=== PATIENT | female | born 1945 | race Caucasian/White ===

== ENCOUNTER → 2023-09-03 07:25 | Outpatient (REF) | payer OTHER, SELFPAY | LOC: HWRAD 07:25 | PROVIDERS: ATTENDING PHYSICIAN Internal Medicine | DX: M85.80 Other specified disorders of bone density and structure, unspecified site (principal); Z12.31 Encounter for screening mammogram for malignant neoplasm of breast | CPT/HCPCS: 77063; 77067; 77080 ==

== ENCOUNTER → 2023-12-30 10:54 | Outpatient (REF) | payer OTHER, SELFPAY | LOC: HWRAD 10:54 | PROVIDERS: ATTENDING PHYSICIAN Otolaryngology Plastic Surgery within the Head & Neck; FAMILY PHYSICIAN Internal Medicine | DX: E04.1 Nontoxic single thyroid nodule (principal) | CPT/HCPCS: 76536 ==

== ENCOUNTER → 2024-10-30 09:51 | Outpatient (REF) | payer OTHER, SELFPAY | LOC: HWWDC 09:51 | PROVIDERS: ATTENDING PHYSICIAN Internal Medicine | DX: Z12.31 Encounter for screening mammogram for malignant neoplasm of breast (principal) | CPT/HCPCS: 77063; 77067 ==

== ENCOUNTER → 2025-02-03 09:29 | Outpatient (REF) | payer OTHER, SELFPAY | LOC: HWRAD 09:29 | PROVIDERS: ATTENDING PHYSICIAN Otolaryngology Plastic Surgery within the Head & Neck; FAMILY PHYSICIAN Internal Medicine | DX: E04.1 Nontoxic single thyroid nodule (principal) | CPT/HCPCS: 76536 ==